=== PATIENT | male | born 1995 | race Caucasian/White ===

== ENCOUNTER 2018-02-14 19:46 | Emergency (ER) | payer OTHER ==
[~2018-02-14] VITALS: Ht 182.9 cm; Wt 81.6 kg
[2018-02-14] MEDS ORDERED: REMERON15 M1 PO (20:00)
[2018-02-14] MEDS ORDERED: LEXAPRO5 MG PO (20:01)
== END 2018-02-14 21:07 | disposition home or self-care (01) ==
LOC: ER 19:46
DX: S01.82XA Laceration with foreign body of other part of head, initial encounter (principal); W25.XXXA Contact with sharp glass, initial encounter; Y93.89 Activity, other specified; Y92.89 Other specified places as the place of occurrence of the external cause; Y99.8 Other external cause status